=== PATIENT | male | born 1990 | race Caucasian/White ===

== ENCOUNTER 2023-06-21 12:00 | Emergency (ER) | payer OTHER, SELFPAY ==
[2023-06-21 12:02] VITALS: BP 119/75; PULSE 90; RESP 18; TEMP 36.1; O2SAT 98; BMI 26.9
--- NOTE | 2023-06-21 12:10 | RAD_ITS ---
STUDY: X-RAY - RIGHT HAND REASON FOR EXAM: Male, 32 years old. Work injury, right hand middle finger TECHNIQUE: 3 view(s) of the hand. COMPARISON: None. FINDINGS: Normal radiocarpal articulation. Normal distal radioulnar joint. Normal visualized carpal bones. Normal carpal articulations Normal carpometacarpal articulation of the thumb. Normal second through fifth carpometacarpal joints. Normal metacarpi. Normal metacarpophalangeal joint of the thumb. Normal interphalangeal joint of the thumb. Normal proximal and distal phalanges of the thumb. Normal metacarpophalangeal joints of the second through fifth fingers. Normal proximal and distal interphalangeal joints of the second through fifth fingers. Nondisplaced avulsion type fracture along the volar aspect of the base of the middle phalanx of the third digit. Soft tissue swelling. RAD/Hand Min 3 Views IMPRESSION: Nondisplaced avulsion type fracture along the volar aspect of the base of the middle phalanx of the third digit with overlying soft tissue swelling. Electronically Signed: Bill Harris MD at 13:29 EDT ,
--- NOTE | 2023-06-21 13:27 | EX.ED.UPPERE ---
HPI History of Present Illness Chief Complaint: Upper Extremity Injury Informant: patient Narrative Narrative: [id number] male presents work-related injury right middle finger 11:40 PM. 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 He states feels some numbness to the finger. Tightness to the finger. Pain with the distal tip of the finger, no medications taken prior to arrival. PFSH PFSH Allergy/AdvReac Type Severity Reaction Status Date / Time Penicillins Allergy Mild body pain Verified 06/21/23 12:02 Social History Smoking Status: Never smoker ROS ROS ED Constitutional Constitutional ED: Denies chills, fever(s) or sweats Eyes Eyes: Denies change in vision ENT ENT ED: Denies dysphagia or sore throat Cardiovascular Cardiovascular: Denies chest pain, leg edema, palpitations or racing heartbeat Respiratory/Chest Respiratory/Chest: Denies cough, dyspnea or dyspnea on exertion Gastrointestinal Gastrointestinal: Denies abdominal pain, diarrhea, nausea or vomiting Genitourinary Genitourinary ED: Denies dysuria, hematuria or urinary frequency Musculoskeletal Musculoskeletal: Reports extremity pain; Denies back pain or neck pain Integumentary Denies rash or wounds Neurologic Neurologic: Denies headache(s), paresthesias or weakness EXAM Physical Exam Const Vital Signs: 06/21/23 12:02 Temperature 96.9 F L Temperature Source Temporal Pulse Rate 90 Respiratory Rate 18 Blood Pressure 119/75 Blood Pressure Mean 89 Pulse Ox 98 Oxygen Delivery Method Room Air Positive well nourished and well developed General Appearance ED: well developed and NAD HEENT Reports moist mucous membranes normocephalic and atraumatic Eyes PERRL, EOMs intact bilaterally and conjunctivae normal General Eye ED: Yes normal appearance of both eyes Neck no lymphadenopathy and supple General: Negative for tenderness Chest Wall Chest: Negative for tenderness Resp normal respiratory effort and normal air movement Effort and Inspection: symmetric chest movement; Negative for respiratory distress Cardio regular rate, regular rhythm and no murmurs Peripheral Pulses: pulses 2+ throughout GI normal to inspection, nondistended, normoactive bowel sounds and non-tender Palpation: Negative for guarding or rebound tenderness present Back/Spine no CVA tenderness and no thoracic nor lumbar tenderness Extremity Extremity Narrative: Right upper extremity: No elbow wrist tenderness no hand tenderness. Middle finger evaluation no subungual hematoma. He is able to fully flex his fingers however there is some tightness and swelling more proximally. There is no deformities. Palpation along the phalanx of the proximal middle without tenderness. Minimal tenderness at the distal phalanx. Cap refill less than 3 seconds. General Extremety ED: Negative for edema or tenderness General Extremity: Negative for edema Neuro oriented x3 and no sensory deficits noted Sensorium / Orientation: awake and alert Skin no rashes or lesions noted and no wounds MDM MDM MDM Narrative Medical decision making narrative: Interventions / MDM: Differential diagnosis: Finger sprain, finger fracture Diagnosis considered but do not suspect: N/A My EKG interpretation: N/A Imaging independently reviewed and interpreted by myself: Three-view x-ray right hand: Age-indeterminate avulsion fracture of the proximal middle phalanx External documents reviewed: N/A Test considered but not ordered:N/A ED course: Patient blunt injury to his finger. States it bent backwards. X-rays performed through triage reviewed and is age-indeterminate avulsion fracture proximal middle phalanx. He is clinically nontender in this region. There is no subungual hematoma. Motrin started AlumaFoam splint. He did not want any work restrictions as he needs to work. He will use the splint as needed he will continue Tylenol Motrin as needed. Follow-up with occupational health. Re-evaluation: stable Disposition discussed with patient/family/significant other: Patient Case discussed with consulting clinician: N/A This note was generated with [employer] dictation software. It may contain incorrect words, spelling, and punctuation that were not noted in checking the note before signing. Discharge Plan Triage Chief Complaint: Upper Extremity Injury ED Provider: Collin Davidson Dx/Rx/DC Orders Clinical Impression: Sprain of finger of right hand Instructions: ED Finger Sprain Primary Care Provider: Care Physician,No Primary Referrals: Care Physician,No Primary [Primary Care Provider] - Activity Restrictions/Additional Instructions: X-ray no clear fractures noted, questionable avulsion at the middle proximal phalanx of the middle finger however clinically not tender in that area. Use the splint for support maintain for comfort. Continue Tylenol ibuprofen every 6 hours. Follow-up with occupational health. Disposition Disposition: Home, Self Care Discharge Date/Time: 06/21/23 13:40
[2023-06-21] MEDS: Ibuprofen 600 MG Tablet PO (13:39)
== END 2023-06-21 13:40 | disposition home or self-care (01) ==
PROVIDERS: Emergency Provider Emergency Medicine; Visit Provider Emergency Medicine
DX: S63.91XA Sprain of unspecified part of right wrist and hand, initial encounter (principal); Y99.0 Civilian activity done for income or pay; W22.8XXA Striking against or struck by other objects, initial encounter; Y93.89 Activity, other specified; Y92.69 Other specified industrial and construction area as the place of occurrence of the external cause
CPT/HCPCS: 73130; 99283